=== PATIENT | male | born 1955 | race African-American/Black ===

== ENCOUNTER 2017-09-08 19:55 | Emergency (ER) | payer OTHER ==
[~2017-09-08] VITALS: Ht 188 cm; Wt 64.0 kg
[2017-09-08] MEDS ORDERED: IBUPROFEN 400MG TABLET PO ONE (23:30)
[2017-09-08] MEDS ORDERED: ACETAMINOPHEN 500MG TABLET PO ONE (23:30)
[2017-09-09 01:11] VITALS: BP 118/79
== END 2017-09-09 01:17 | disposition home or self-care (01) ==
LOC: ER 21:19
DX: S00.83XA Contusion of other part of head, initial encounter (principal); F20.9 Schizophrenia, unspecified; Y08.89XA Assault by other specified means, initial encounter; Y93.89 Activity, other specified; Y92.89 Other specified places as the place of occurrence of the external cause; Y99.8 Other external cause status
CPT/HCPCS: 70450; 70486; 72125; 99284